=== PATIENT | female | born 1955 | race Hispanic/Latino ===

== ENCOUNTER 2018-05-22 16:19 | Emergency (ER) | payer MEDICARE ==
[~2018-05-22] VITALS: Ht 157.5 cm; Wt 86.2 kg
[~2018-05-22 16:19] MED LIST: BENTYL10 MG PO; CELEBREX200 MG PO; FLAGYL250 MG PO; LEVAQUIN500 MG PO; SURFAK240 M2 PO; Z.0.CHLORDIAZEPOXI1 PO; Z.0.ESTRADIOL1 MG PO; Z.0.NEXIUM40 MG PO; Z.0.NORCO 5-325 TA1 PO; Z.0.ZOLOFT50 MG PO; Z.1.FERROUS SULFAT32 PO; [UNRECOGNIZED DRUG - OTHER] PO; [UNRECOGNIZED DRUG - OTHER] PO
[2018-05-22 17:09] LABS: BASOPHILS % 0.4 % (0.0-1.0); EOSINOPHILS # (AUTO) 0.1 (0.0-0.4); EOSINOPHILS % 1.2 % (0.0-6.0); HEMATOCRIT 38.2 % (34.2-44.1); HEMOGLOBIN 12.9 g/dL (12.0-16.0); LYMPHOCYTES # (AUTO) 3.1 (1.0-3.2); LYMPHOCYTES % 33.4 % (18.0-39.1); MEAN CORPUSCULAR HEMOGLOBIN 29.6 pg (28-32); MEAN CORPUSCULAR HGB CONC 33.8 g/dL (31-35); MEAN CORPUSCULAR VOLUME 87.6 fL (81-99); MONOCYTES # (AUTO) 0.8 (0.2-0.8); MONOCYTES % 8.7 % (4.4-11.3); NEUTROPHILS # (AUTO) 5.2 (2.1-6.9); PLATELET COUNT 357 x10e3/uL (140-360); RED BLOOD COUNT 4.36 x10e6/uL (3.6-5.1); RED CELL DISTRIBUTION WIDTH 13.2 % (11.7-14.4)
[2018-05-22 17:22] LABS: INR 0.93; PROTHROMBIN TIME 13.3 seconds (11.9-14.5)
[2018-05-22 17:23] LABS: PARTIAL THROMBOPLASTIN TIME 30.7 seconds (23.8-35.5)
[2018-05-22 17:27] LABS: ALANINE AMINOTRANSFERASE 27 IU/L (0-55); ALKALINE PHOSPHATASE 90 IU/L (40-150); ANION GAP 16.9 mmol/L (8-16); BLOOD UREA NITROGEN 13 mg/dL (7-26); BUN/CREATININE RATIO 16 (6-25); CARBON DIOXIDE 23 mmol/L (22-29); CHLORIDE 104 mmol/L (98-107); CREATINE KINASE 338 IU/L (29-168); CREATININE, SERUM 0.83 mg/dL (0.57-1.11); EST GLOMERULAR FILTRATION RATE > 60 ML/MIN (60-); GLUCOSE 93 mg/dL (74-118); POTASSIUM 3.9 mmol/L (3.5-5.1); SODIUM 140 mmol/L (136-145)
--- NOTE | 2018-05-22 17:27 | Diagnostic Imaging Report ---
EXAMINATION: CHEST SINGLE (PORTABLE) INDICATION: Chest pain. COMPARISON: Chest radiograph 07/31/2015. FINDINGS: TUBES and LINES: None. LUNGS: Low lung volumes with mild patchy left basilar opacity. No evidence of lobar consolidation or pulmonary edema. PLEURA: No pleural effusion or pneumothorax. HEART AND MEDIASTINUM: The cardiomediastinal silhouette is unremarkable. BONES AND SOFT TISSUES: No acute osseous lesion. Soft tissues are unremarkable. Bilateral rotator cuff anchors are present. UPPER ABDOMEN: No free air under the diaphragm. IMPRESSION: No acute radiographic abnormality. Mild patchy left basilar opacity, likely atelectasis. Early pneumonia is possible in the appropriate clinical context. Signed by: Dr. Nallely Marie MD on 05/22/2018 5:24 PM
--- NOTE | 2018-05-22 17:30 | NUR ---
PT WALKING IN HALLWAY WITH BELONGINGS STATING SHE IS LEAVING. INFORMED PT OF IV TO BE REMOVED. PT ALLOWED IV TO BE REMOVED. PT STATED WAIT TOO LONG AND HER WANTED TO STAY WITH HER BUT WOULDNT. Addendum: 05/22/18 at 1934 by ALMITA PT STATED SHE WOULD NOT SIGN AMA FORM
== END 2018-05-22 17:30 | disposition left against medical advice (07) ==
LOC: ER 16:19
DX: R07.9 Chest pain, unspecified (principal)
CPT/HCPCS: 36415; 71045; 80053; 82550; 82553; 83880; 84484; 85025; 85610; 85730; 93005; 99284